=== PATIENT | female | born 1985 | race Caucasian/White ===

== ENCOUNTER → 2021-07-22 10:20 | Outpatient (CLI) | payer OTHER, SELFPAY ==
[2021-07-22 11:03] LABS: Add Manual Diff / Slide Review NO; Basophils Absolute Auto 0 /uL (0-100); Basophils Percent Auto 0.6 % (0-2); Eosinophils Absolute Auto 100 /uL (0-450); Eosinophils Percent Auto 1.1 % (2-4); Hematocrit 39.5 % (36-46); Hemoglobin 13.3 g/dL (12.0-16.0); Lymphocytes Absolute Auto 1800 /uL (1100-4500); Lymphocytes Percent Auto 31.8 % (25-40); Mean Corpuscular HGB Conc 33.6 % (30-36); Mean Corpuscular Hemoglobin 29.2 PG (26-34); Monocytes Absolute Auto 400 /uL (0-900); Monocytes Percent Auto 6.3 % (3-14); Neutrophils Absolute Auto 3500 /uL (1500-7000); Neutrophils Percent Auto 60.2 % (50-75); Platelet Count 240 X10^3/uL (150-400); Red Blood Cell Count 4.54 X10^6/uL (4.0-5.2); Red Cell Distribution Width 13.1 % (11.6-14.8); White Blood Cell Count 5.8 X10^3/uL (4.5-11.0)
[2021-07-22 11:38] LABS: Alanine Aminotransferase 23 IU/L (<35); Albumin 4.6 g/dL (3.5-5.0); Albumin Globulin Ratio 1.5 (1.0-2.8); Alkaline Phosphatase 28 U/L (38-126); Aspartate Aminotransferase 27 IU/L (14-36); BUN Creatinine Ratio 14.9 (6-22); Bilirubin Total 0.4 mg/dL (0.2-1.3); Blood Urea Nitrogen 10 mg/dL (7-17); Calcium 8.8 mg/dL (8.4-10.2); Carbon Dioxide 27 mmol/L (22-32); Chloride 107 mmol/L (98-107); Cholesterol 137 mg/dL (140-199); Estimated Glomerular Filt Rate > 60 mL/min (>60); Globulin 3.1 g/dL (1.7-4.1); Glucose 85 mg/dL (70-100); HDL Cholesterol 42 mg/dL (40-60); HEMOLYSIS < 15 (0-50); LDL Cholesterol Calculated 72 mg/dL (<100); Sodium 139 mmol/L (137-145); Total Protein 7.7 g/dL (6.3-8.2); Triglycerides 114 mg/dL (35-150)
[2021-07-22 12:40] LABS: TSH w/ Reflex to FT4 0.48 uIU/mL (0.47-4.68)
== END ==
PROVIDERS: PCP Family Medicine; Referring Provider Family Medicine; Visit Provider Family Medicine
DX: Z13.220 Encounter for screening for lipoid disorders (principal); Z13.228 Encounter for screening for other metabolic disorders; Z13.29 Encounter for screening for other suspected endocrine disorder; Z76.89 Persons encountering health services in other specified circumstances
CPT/HCPCS: 36415; 80053; 80061; 84443; 85025

== ENCOUNTER → 2021-09-27 09:55 | Outpatient (CLI) | payer OTHER, SELFPAY ==
[2021-09-27 11:21] LABS: Appearance Urine UA CLEAR; Bilirubin Urine UA NEGATIVE (NEGATIVE); Color Urine UA YELLOW; Glucose Urine UA NEGATIVE (Negative); Ketones Urine UA NEGATIVE (NEGATIVE); Leukocyte Esterase Urine UA NEGATIVE (NEGATIVE); Nitrite Urine UA NEGATIVE (Negative); Occult Blood Urine UA TRACE-LYSED (Negative); Protein Urine UA NEGATIVE (Negative); Specific Gravity Urine UA 1.015 (1.000-1.035); Urobilinogen Urine UA 0.2 E.U./dL (0.2)
[2021-09-27 12:26] LABS: Bacteria Urine Few (2-10); Culture Indicated Urine Cult Not Indicated; RBC Urine None Seen (0-5/HPF); Squamous Epithelial Cell Urine 1-5 /HPF (0-5/HPF); WBC Urine 0-1/HPF (0-5/HPF)
== END ==
PROVIDERS: PCP Pediatrics; Referring Provider Nurse Practitioner; Visit Provider Nurse Practitioner
DX: R32 Unspecified urinary incontinence (principal)
CPT/HCPCS: 81001

== ENCOUNTER → 2021-10-05 11:53 | Outpatient (CLI) | payer OTHER, SELFPAY ==
--- NOTE | 2021-10-05 11:54 | DI.US.S_ITS ---
LIMITED ULTRASOUND OF RIGHT BREAST: 10/05/2021 CLINICAL: Patient returns today to evaluate an asymmetry in the right breast. Comparison is made to exams dated: 10/05/2021 mammogram - [facility], 04/29/2018 mammogram, 04/29/2018 ultrasound, and 04/24/2018 mammogram - Outside facility. Color flow and real-time ultrasound of the right breast 1-2 o'clock region were performed. Benign sternalis muscle on the right accounting for mammographic asymmetry. No mass or shadowing. IMPRESSION: BENIGN Benign sternalis muscle accounting for mammographic asymmetry in the medial right breast. No suspicious finding. Return to screening annually. This exam was interpreted at Station ID: [id number]. Electronically Signed By: Elvis Kumar M.D. jr/:10/05/2021 14:59:01 Entry: - 10/06/2021 14:38:18 letter sent: Normal Exam Ultrasound BI-RADS: 2 Benign
--- NOTE | 2021-10-05 11:54 | DI.MG.S_ITS ---
BILATERAL DIGITAL DIAGNOSTIC MAMMOGRAM 3D/2D: 10/05/2021 CLINICAL: Short term follow up of the right breast, due for bilateral imaging. Comparison is made to exams dated: 04/24/2018 mammogram, 04/29/2018 mammogram, and 04/29/2018 ultrasound - Outside facility. The tissue of both breasts is extremely dense, which lowers the sensitivity of mammography. There is a benign sternalis muscle structure in the right breast posterior depth medial region seen on the craniocaudal view only. This is not significantly changed. No other significant masses, calcifications, or other findings are seen in either breast. IMPRESSION: INCOMPLETE: NEEDS ADDITIONAL IMAGING EVALUATION There is no mammographic evidence of malignancy. Asymmetry in the medial right breast is consistent with sternalis muscle and is unchanged. An ultrasound of the area will be performed as requested and as previously recommended. This exam was interpreted at Station ID: [id number]. NOTE: For mammograms, a report in lay terms will be sent to the patient. Approximately 15% of breast malignancies will not be visualized mammographically. In the management of a palpable breast mass, a negative mammogram must not discourage biopsy of a clinically suspicious lesion. Electronically Signed By: Elvis Kumar M.D. jr/:10/06/2021 09:33:12 ACR BI-RADS Category 0: Incomplete [id number]
== END ==
PROVIDERS: PCP Pediatrics; Referring Provider Nurse Practitioner; Visit Provider Nurse Practitioner
DX: R92.8 Other abnormal and inconclusive findings on diagnostic imaging of breast; N64.89 Other specified disorders of breast
CPT/HCPCS: 76642; 77066; G0279

== ENCOUNTER 2022-03-01 09:45 | Outpatient (RCR) | payer OTHER, SELFPAY ==
--- NOTE | 2021-12-13 17:23 | PT.OIE ---
Current Diagnoses Unspecified urinary incontinence (12/13/21) Nocturia (12/13/21) Urgency of urination (12/13/21) Past Medical History (Last Updated 09/27/21 @ 09:50 by BRADY Osuna) Abnormal Pap smear of cervix (~2006) Anxiety (~1999) Depression (~2004) Eczema (~2017) Frequent UTI (~2004) Incontinence Past Surgical History (Last Reviewed 09/27/21 @ 09:33 by BRADY Osuna) Anesthesia [place] teeth removed (~2005) Visit Care Team Role Provider Type Yariel Esparza MD Family Provider Physician Primary Care Provider Specialty: Internal Medicine Pediatrics Address: [address] [place] [address], [id number] Phone: Fax: Email: [email or web address] Attending Provider Advanced Talent Associate Referring Provider Specialty: Family Practice Address: [address] [place] [address], [facility] Email: [email or web address] Physical Therapy Initial Evaluation PT-OP-A Visit Information Start: 12/13/21 09:02 Freq: Status: Active Protocol: Document 12/13/21 09:05 [facility] (Rec: 12/13/21 09:26 [facility] [id number]) Out-Patient Physical Therapy Visit Information Visit Information Visit Type Initial Evaluation Visit Start Time 09:05 Visit Stop Time 10:30 Total Visit Minutes 40 Visit Number 1 Evaluation Information Evaluation Date 12/13/21 PT-OP-B Current Condition Start: 12/13/21 09:02 Freq: Status: Active Protocol: Document 12/13/21 09:05 [facility] (Rec: 12/13/21 09:26 [facility] [id number]) Current Condition History of Current Condition Onset Date January 2019 following the of her daughter Current Complaints urinary urgency, frequency, urge incontinence History of Current Condition January 2019 normal vaginal delivery, pt used to be able to go long durations without having to use the bathroom, now she feels like she has to void frequently, nocturia if her baby wakes her up. If she doesn't go during the day when she has to void. Doesn't usually leak with cough laugh sneeze. On the first day of her period she will note numbness. Pt notes she doesn' t always have a daily bowel movement. There are days that it doesn't happen. PT-OP-C Subjective Start: 12/13/21 09:02 Freq: Status: Active Protocol: Document 12/13/21 09:00 [facility] (Rec: 12/20/21 17:12 [facility] [id number]) Patient Questionnaires Pelvic Pain and Urgency/Frequency Patient Symptom Scale Pelvic Pain Score 6 PT-OP-F Manual Assessment Start: 12/13/21 09:02 Freq: Status: Active Protocol: Document 12/13/21 09:00 [facility] (Rec: 12/14/21 09:43 [facility] [id number]) Manual Assessments Soft Tissue Assessment Soft Tissue Mobility Assessment left descending colon Myofascial restrictions felt along with a full colon, pt notes she is not always having a daily bowel movement right sided muscle tightness and guarding with internal assessment of levator ani musculature. Mere has difficulty relaxing her pelvic floor following a contraction PT-OP-I Pelvic Floor Start: 12/13/21 09:02 Freq: Status: Active Protocol: Document 12/13/21 09:00 [facility] (Rec: 12/14/21 09:42 [facility] [id number]) Pelvic Floor Assessment Urine Pelvic Floor Surgery No Urinary Symptoms Urge Sensation,Incomplete Emptying Other Urinary Symptoms bladder leakage 3 times per week, pelvic pressure with standing when menstruating Leakage Size Medium Leakage Cause Urge Voiding Frequency 6 times Nocturia 1 Pelvic Clock Pelvic Clock 12-3 Atrophy Pelvic Clock 3-6 Atrophy Pelvic Clock 6-9 Guarding Pelvic Clock 9-12 Atrophy Contraction Ability Voluntary Contraction Weak Voluntary Relaxation Weak Manual Muscle Testing Left 3 Manual Muscle Testing Right 2 Manual Muscle Testing Anterior 2 Manual Muscle Testing Posterior 2 Muscle Endurance (Seconds) 5 Comments Pelvic Floor Comments pt is guarded on the right lateral wall of the levator ani, she has difficulty relaxing following a pelvic floor contraction, stool is felt in the rectum with internal exam PT-OP-Q Treatments Start: 12/13/21 09:02 Freq: Status: Active Protocol: Document 12/13/21 09:05 [facility] (Rec: 12/13/21 09:26 [facility] [id number]) Self-Care/Home Management Treatment Education Patient Education Home Exercise Program Other Education urge defernce technique, bladder diary given to patient , education on pelvic floor anatomy, bladder irrititants PT-OP-T Assessment and Plan Start: 12/13/21 09:02 Freq: Status: Active Protocol: Document 12/13/21 09:05 [facility] (Rec: 12/20/21 17:12 [facility] [id number]) Physical Therapy Assessment Rehab Potential Rehabilitation Potential Excellent Evaluation Complexity Number of Personal Factors/Comorbidities 0 Number of Body Systems Impaired 1-2 Clinical Presentation at Evaluation Stable Impairments Impairments Activity Tolerance,Soft Tissue Mobility,Strength,Tone Other Impairments urinary leakage with strong urge to void Assessment Summary Assessment Mere is a 36 year old female referred to PT with chief complaints of urinary urgency and urge incontinence symptoms . She gave to her daughter with a vaginal delivery in 2019 and since that time she feels that she has to void frequently. She also reports c/o nocturia. Mere notes she does not always have a daily bowel movement. She was educated today on importance of daily bowel movements to help reduce any pressure onto her bladder that may be contributing to her urgency. She was given a bladder diary and educated on bladder irritants that may be contributing her her urgency and frequency. With pelvic floor evaluation Mere tests weak in the anterior pelvic floor. She is a 2/5 MMT for anterior and posterior strickland and 3/5 for the lateral strickland. She is guarded on the right lateral wall of her pelvic floor and she has difficulty relaxing this area of her pelvic floor. Treatment will focus on fully relaxing the pelvic floor to fully empty her bladder, pelvic floor endurance training, bladder retraining and urge deference technique. Mere is a good candidate for Pelvic floor PT. Physical Therapy Plan Frequency and Duration Frequency of Treatment 1x/Week Duration of treatment (weeks) 12 Plan of Care Start Date 12/13/21 Plan of Care End Date 03/15/21 Therapeutic Interventions Therapeutic Interventions Home Exercise Program,Manual Therapy,Neuromuscular Re- education,Patient/Caregiver Education,Self-Care/Home Management,Soft Tissue Mobilization,Therapeutic Exercises Modalities Biofeedback,Electric Stimulation Next Visit Focus/Plan Next Note Type Treatment Note Next Visit Plan bladder retraining and urge deference technique, ILU massage for the colon, pelvic floor endurance training with EMG biofeedback
--- NOTE | 2021-12-13 17:29 | PT.OPPOC ---
Physical, Occupational & Speech Therapy At [facility] Current Diagnoses Unspecified urinary incontinence (12/13/21) Nocturia (12/13/21) Urgency of urination (12/13/21) Visit Care Team Role Provider Type Yariel Esparza MD Family Provider Physician Primary Care Provider Specialty: Internal Medicine Pediatrics Address: [address] [place] [address], [address] Phone: Fax: Email: [email or web address] Attending Provider Advanced General Operator Referring Provider Specialty: Family Practice Address: [address] [place] [address], [address] Email: [email or web address] Plan Of Care PT-OP-T Assessment and Plan Start: 12/13/21 09:02 Freq: Status: Active Protocol: Document 12/13/21 09:05 [facility] (Rec: 12/20/21 17:12 [facility] [id number]) Physical Therapy Assessment Rehab Potential Rehabilitation Potential Excellent Evaluation Complexity Number of Personal Factors/Comorbidities 0 Number of Body Systems Impaired 1-2 Clinical Presentation at Evaluation Stable Impairments Impairments Activity Tolerance,Soft Tissue Mobility,Strength,Tone Other Impairments urinary leakage with strong urge to void Goals 3 Impairment pelvic floor weakness and decreased pelvic floor endurance Short Term Goal (STG) Mere is able to sustain a pelvic floor contraction in supine x 10 seconds Custodial Goal (LTG) Mere is able to show a improvement with pelvic floor muscle strength by 1 muscle grade or better and is able to sustain a pelvic floor contraction x 10 seconds in standing LTG Duration 12 weeks 2 Impairment urinary incontinence with strong urge to void wetting through her outerware 3 times per week Veterinary Livestock Inspector Goal (LTG) Mere reports a overall reduction in urinary incontinence from wetting through her outerware 3 xms per week to no leakage LTG Duration 12 weeks 1 Impairment urinary urgency and frequency with nocturia Short Term Goal (STG) Mere is educated on bladder retraining and urge deference technique STG Duration 3 weeks Custodial Goal (LTG) Mere is able to extend her voiding intervals to every 2-3 hours during the day and 0-1 times at night LTG Duration 12 weeks Assessment Summary Assessment Mere is a 36 year old female referred to PT with chief complaints of urinary urgency and urge incontinence symptoms . She gave to her daughter with a vaginal delivery in 2019 and since that time she feels that she has to void frequently. She also reports c/o nocturia. Mere notes she does not always have a daily bowel movement. She was educated today on importance of daily bowel movements to help reduce any pressure onto her bladder that may be contributing to her urgency. She was given a bladder diary and educated on bladder irritants that may be contributing her her urgency and frequency. With pelvic floor evaluation Mere tests weak in the anterior pelvic floor. She is a 2/5 MMT for anterior and posterior strickland and 3/5 for the lateral strickland. She is guarded on the right lateral wall of her pelvic floor and she has difficulty relaxing this area of her pelvic floor. Treatment will focus on fully relaxing the pelvic floor to fully empty her bladder, pelvic floor endurance training, bladder retraining and urge deference technique. Mere is a good candidate for Pelvic floor PT. Physical Therapy Plan Frequency and Duration Frequency of Treatment 1x/Week Duration of treatment (weeks) 12 Plan of Care Start Date 12/13/21 Plan of Care End Date 03/15/21 Therapeutic Interventions Therapeutic Interventions Home Exercise Program,Manual Therapy,Neuromuscular Re- education,Patient/Caregiver Education,Self-Care/Home Management,Soft Tissue Mobilization,Therapeutic Exercises Modalities Biofeedback,Electric Stimulation Next Visit Focus/Plan Next Note Type Treatment Note Next Visit Plan bladder retraining and urge deference technique, ILU massage for the colon, pelvic floor endurance training with EMG biofeedback Plan of Care Dates Plan of Care Start Date 12/13/21 Plan of Care End Date 03/15/21 Electronically Signed by: Tiera Nowak, PT 12/20/21 9114 If you are in agreement with this Plan of Care, please return a signed and dated copy. I have reviewed this Plan of Care and certify that the skilled therapy services above are required to meet the patient?s needs. Physician Signature Date Printed Name and Credentials Clinical Instructor Signature Printed Name and Credentials
--- NOTE | 2021-12-13 17:30 | PT.OIE ---
Current Diagnoses Unspecified urinary incontinence (12/13/21) Nocturia (12/13/21) Urgency of urination (12/13/21) Past Medical History (Last Updated 09/27/21 @ 09:50 by BRADY Osuna) Abnormal Pap smear of cervix (~2006) Anxiety (~1999) Depression (~2004) Eczema (~2017) Frequent UTI (~2004) Incontinence Past Surgical History (Last Reviewed 09/27/21 @ 09:33 by BRADY Osuna) Anesthesia [place] teeth removed (~2005) Visit Care Team Role Provider Type Yariel Esparza MD Family Provider Physician Primary Care Provider Specialty: Internal Medicine Pediatrics Address: [address] [place] [address], [id number] Phone: Fax: Email: [email or web address] Osuna Attending Provider Advanced Detective And Intelligence Analyst Referring Provider Specialty: Family Practice Address: [address] [place] [address], [facility] Email: [email or web address] Physical Therapy Initial Evaluation PT-OP-A Visit Information Start: 12/13/21 09:02 Freq: Status: Active Protocol: Document 12/13/21 09:05 [facility] (Rec: 12/13/21 09:26 [facility] [id number]) Out-Patient Physical Therapy Visit Information Visit Information Visit Type Initial Evaluation Visit Start Time 09:05 Visit Stop Time 10:30 Total Visit Minutes 40 Visit Number 1 Evaluation Information Evaluation Date 12/13/21 PT-OP-B Current Condition Start: 12/13/21 09:02 Freq: Status: Active Protocol: Document 12/13/21 09:05 [facility] (Rec: 12/13/21 09:26 [facility] [id number]) Current Condition History of Current Condition Onset Date January 2019 following the of her daughter Current Complaints urinary urgency, frequency, urge incontinence History of Current Condition January 2019 normal vaginal delivery, pt used to be able to go long durations without having to use the bathroom, now she feels like she has to void frequently, nocturia if her baby wakes her up. If she doesn't go during the day when she has to void. Doesn't usually leak with cough laugh sneeze. On the first day of her period she will note numbness. Pt notes she doesn' t always have a daily bowel movement. There are days that it doesn't happen. PT-OP-C Subjective Start: 12/13/21 09:02 Freq: Status: Active Protocol: Document 12/13/21 09:00 [facility] (Rec: 12/20/21 17:12 [facility] [id number]) Patient Questionnaires Pelvic Pain and Urgency/Frequency Patient Symptom Scale Pelvic Pain Score 6 PT-OP-F Manual Assessment Start: 12/13/21 09:02 Freq: Status: Active Protocol: Document 12/13/21 09:00 [facility] (Rec: 12/14/21 09:43 [facility] [id number]) Manual Assessments Soft Tissue Assessment Soft Tissue Mobility Assessment left descending colon Myofascial restrictions felt along with a full colon, pt notes she is not always having a daily bowel movement right sided muscle tightness and guarding with internal assessment of levator ani musculature. Mere has difficulty relaxing her pelvic floor following a contraction PT-OP-I Pelvic Floor Start: 12/13/21 09:02 Freq: Status: Active Protocol: Document 12/13/21 09:00 [facility] (Rec: 12/14/21 09:42 [facility] [id number]) Pelvic Floor Assessment Urine Pelvic Floor Surgery No Urinary Symptoms Urge Sensation,Incomplete Emptying Other Urinary Symptoms bladder leakage 3 times per week, pelvic pressure with standing when menstruating Leakage Size Medium Leakage Cause Urge Voiding Frequency 6 times Nocturia 1 Pelvic Clock Pelvic Clock 12-3 Atrophy Pelvic Clock 3-6 Atrophy Pelvic Clock 6-9 Guarding Pelvic Clock 9-12 Atrophy Contraction Ability Voluntary Contraction Weak Voluntary Relaxation Weak Manual Muscle Testing Left 3 Manual Muscle Testing Right 2 Manual Muscle Testing Anterior 2 Manual Muscle Testing Posterior 2 Muscle Endurance (Seconds) 5 Comments Pelvic Floor Comments pt is guarded on the right lateral wall of the levator ani, she has difficulty relaxing following a pelvic floor contraction, stool is felt in the rectum with internal exam PT-OP-Q Treatments Start: 12/13/21 09:02 Freq: Status: Active Protocol: Document 12/13/21 09:05 [facility] (Rec: 12/13/21 09:26 [facility] [id number]) Self-Care/Home Management Treatment Education Patient Education Home Exercise Program Other Education urge defernce technique, bladder diary given to patient , education on pelvic floor anatomy, bladder irrititants PT-OP-T Assessment and Plan Start: 12/13/21 09:02 Freq: Status: Active Protocol: Document 12/13/21 09:05 [facility] (Rec: 12/20/21 17:12 [facility] [id number]) Physical Therapy Assessment Rehab Potential Rehabilitation Potential Excellent Evaluation Complexity Number of Personal Factors/Comorbidities 0 Number of Body Systems Impaired 1-2 Clinical Presentation at Evaluation Stable Impairments Impairments Activity Tolerance,Soft Tissue Mobility,Strength,Tone Other Impairments urinary leakage with strong urge to void Goals 3 Impairment pelvic floor weakness and decreased pelvic floor endurance Short Term Goal (STG) Mere is able to sustain a pelvic floor contraction in supine x 10 seconds Correction Goal (LTG) Mere is able to show a improvement with pelvic floor muscle strength by 1 muscle grade or better and is able to sustain a pelvic floor contraction x 10 seconds in standing LTG Duration 12 weeks 2 Impairment urinary incontinence with strong urge to void wetting through her outerware 3 times per week Correction Goal (LTG) Mere reports a overall reduction in urinary incontinence from wetting through her outerware 3 xms per week to no leakage LTG Duration 12 weeks 1 Impairment urinary urgency and frequency with nocturia Short Term Goal (STG) Mere is educated on bladder retraining and urge deference technique STG Duration 3 weeks Correction Goal (LTG) Mere is able to extend her voiding intervals to every 2-3 hours during the day and 0-1 times at night LTG Duration 12 weeks Assessment Summary Assessment Mere is a 36 year old female referred to PT with chief complaints of urinary urgency and urge incontinence symptoms . She gave to her daughter with a vaginal delivery in 2019 and since that time she feels that she has to void frequently. She also reports c/o nocturia. Mere notes she does not always have a daily bowel movement. She was educated today on importance of daily bowel movements to help reduce any pressure onto her bladder that may be contributing to her urgency. She was given a bladder diary and educated on bladder irritants that may be contributing her her urgency and frequency. With pelvic floor evaluation Mere tests weak in the anterior pelvic floor. She is a 2/5 MMT for anterior and posterior strickland and 3/5 for the lateral strickland. She is guarded on the right lateral wall of her pelvic floor and she has difficulty relaxing this area of her pelvic floor. Treatment will focus on fully relaxing the pelvic floor to fully empty her bladder, pelvic floor endurance training, bladder retraining and urge deference technique. Mere is a good candidate for Pelvic floor PT. Physical Therapy Plan Frequency and Duration Frequency of Treatment 1x/Week Duration of treatment (weeks) 12 Plan of Care Start Date 12/13/21 Plan of Care End Date 03/15/21 Therapeutic Interventions Therapeutic Interventions Home Exercise Program,Manual Therapy,Neuromuscular Re- education,Patient/Caregiver Education,Self-Care/Home Management,Soft Tissue Mobilization,Therapeutic Exercises Modalities Biofeedback,Electric Stimulation Next Visit Focus/Plan Next Note Type Treatment Note Next Visit Plan bladder retraining and urge deference technique, ILU massage for the colon, pelvic floor endurance training with EMG biofeedback
--- NOTE | 2022-01-12 17:36 | PT.OTN ---
Current Diagnoses Unspecified urinary incontinence (01/12/22) Nocturia (01/12/22) Urgency of urination (01/12/22) Physical Therapy Treatment Note PT-OP-A Visit Information Start: 12/13/21 09:02 Freq: Status: Active Protocol: Document 01/12/22 09:48 [facility] (Rec: 01/12/22 10:11 [facility] [id number]) Out-Patient Physical Therapy Visit Information Visit Information Visit Type Treatment Note Visit Start Time 09:45 Visit Stop Time 10:30 Total Visit Minutes 45 Visit Number 2 PT-OP-B Current Condition Start: 12/13/21 09:02 Freq: Status: Active Protocol: Document 12/13/21 09:05 [facility] (Rec: 12/13/21 09:26 [facility] [id number]) Current Condition History of Current Condition Onset Date January 2019 following the of her daughter Current Complaints urinary urgency, frequency, urge incontinence History of Current Condition January 2019 normal vaginal delivery, pt used to be able to go long durations without having to use the bathroom, now she feels like she has to void frequently, nocturia if her baby wakes her up. If she doesn't go during the day when she has to void. Doesn't usually leak with cough laugh sneeze. On the first day of her period she will note numbness. Pt notes she doesn' t always have a daily bowel movement. There are days that it doesn't happen. PT-OP-C Subjective Start: 12/13/21 09:02 Freq: Status: Active Protocol: Document 01/12/22 09:48 [facility] (Rec: 01/12/22 10:11 [facility] [id number]) OP-PT Subjective Patient Comments Patient Comments pt notes she hasn't been having as many accidents, usually the leakage happens with a strong urge to void and it can happen after she has been in the car and then pulls up at home. She has been trying the ILU massage as well PT-OP-F Manual Assessment Start: 12/13/21 09:02 Freq: Status: Active Protocol: Document 12/13/21 09:00 [facility] (Rec: 12/14/21 09:43 [facility] [id number]) Manual Assessments Soft Tissue Assessment Soft Tissue Mobility Assessment left descending colon Myofascial restrictions felt along with a full colon, pt notes she is not always having a daily bowel movement right sided muscle tightness and guarding with internal assessment of levator ani musculature. Mere has difficulty relaxing her pelvic floor following a contraction PT-OP-I Pelvic Floor Start: 12/13/21 09:02 Freq: Status: Active Protocol: Document 01/12/22 09:48 [facility] (Rec: 01/12/22 10:12 [facility] [id number]) Pelvic Floor Assessment Urine Pelvic Floor Surgery No Urinary Symptoms Urge Sensation,Incomplete Emptying Other Urinary Symptoms bladder leakage 3 times per week, pelvic pressure with standing when menstruating Leakage Size Medium Leakage Cause Urge Voiding Frequency 6 times Nocturia 1 Contraction Ability Voluntary Contraction Weak Voluntary Relaxation Weak Manual Muscle Testing Left 3 Manual Muscle Testing Right 2 Manual Muscle Testing Anterior 2 Manual Muscle Testing Posterior 2 Muscle Endurance (Seconds) 5 PT-OP-Q Treatments Start: 12/13/21 09:02 Freq: Status: Active Protocol: Document 01/12/22 09:48 [facility] (Rec: 01/12/22 10:28 [facility] [id number]) Therapeutic Exercises Supine Exercises quick pelvic floor contractions Comments pt to use with urge technique for home pelvic floor Reps/Minutes 10 second hold 10 sec relax Comments 13.6 23.8 Manual Therapy Treatment Soft Tissue Mobilization 1 Body Location ILU abdominal massage Mobilization Type Myofascial Release Intensity/Depth Superficial Comments pt educated in ILU massage for home Neuro Re-Education Treatment Other Activities EMG biofeedback Comments EMG biofeedback was used today for relaxed awareness of the pelvic floor and endurance training of the pelvic floor Self-Care/Home Management Treatment Education Patient Education Home Exercise Program Other Education ILU massage, urge deference technique and bladder retraining PT-OP-T Assessment and Plan Start: 12/13/21 09:02 Freq: Status: Active Protocol: Document 01/12/22 09:48 [facility] (Rec: 01/12/22 10:11 [facility] [id number]) Physical Therapy Assessment Goals 3 Impairment pelvic floor weakness and decreased pelvic floor endurance Short Term Goal (STG) Mere is able to sustain a pelvic floor contraction in supine x 10 seconds Custodial Goal (LTG) Mere is able to show a improvement with pelvic floor muscle strength by 1 muscle grade or better and is able to sustain a pelvic floor contraction x 10 seconds in standing LTG Duration 12 weeks 2 Impairment urinary incontinence with strong urge to void wetting through her outerware 3 times per week Gearcase Assembler Goal (LTG) Mere reports a overall reduction in urinary incontinence from wetting through her outerware 3 xms per week to no leakage LTG Duration 12 weeks 1 Impairment urinary urgency and frequency with nocturia Short Term Goal (STG) Mere is educated on bladder retraining and urge deference technique STG Duration 3 weeks Custodial Goal (LTG) Mere is able to extend her voiding intervals to every 2-3 hours during the day and 0-1 times at night LTG Duration 12 weeks Assessment Summary Assessment ILU massage and urge deference technique both reviewed today and EMG biofeedback initiated for pelvic floor endurance training. Mere tolerated this well and her endurance showed improvement today Physical Therapy Plan Frequency and Duration Frequency of Treatment 1x/Week Duration of treatment (weeks) 12 Plan of Care Start Date 12/13/21 Plan of Care End Date 03/15/21
--- NOTE | 2022-01-25 10:40 | PT.OTN ---
Current Diagnoses Unspecified urinary incontinence (01/25/22) Nocturia (01/25/22) Urgency of urination (01/25/22) Physical Therapy Treatment Note PT-OP-A Visit Information Start: 12/13/21 09:02 Freq: Status: Active Protocol: Document 01/25/22 09:44 [facility] (Rec: 01/25/22 10:15 [facility] [id number]) Out-Patient Physical Therapy Visit Information Visit Information Visit Type Treatment Note Visit Start Time 09:45 Visit Stop Time 10:30 Total Visit Minutes 45 Visit Number 3 PT-OP-B Current Condition Start: 12/13/21 09:02 Freq: Status: Active Protocol: Document 12/13/21 09:05 [facility] (Rec: 12/13/21 09:26 [facility] [id number]) Current Condition History of Current Condition Onset Date January 2019 following the of her daughter Current Complaints urinary urgency, frequency, urge incontinence History of Current Condition January 2019 normal vaginal delivery, pt used to be able to go long durations without having to use the bathroom, now she feels like she has to void frequently, nocturia if her baby wakes her up. If she doesn't go during the day when she has to void. Doesn't usually leak with cough laugh sneeze. On the first day of her period she will note numbness. Pt notes she doesn' t always have a daily bowel movement. There are days that it doesn't happen. PT-OP-C Subjective Start: 12/13/21 09:02 Freq: Status: Active Protocol: Document 01/25/22 09:44 [facility] (Rec: 01/25/22 10:15 [facility] [id number]) OP-PT Subjective Patient Comments Patient Comments pt notes 2.5 weeks ago she got RSV so she has had a cough and has been close to home. She didn't have any leakage with coughing but did once when she sneezed. She hasn't had any complaints of urrgency recently but notes she has been at home due to being sick PT-OP-F Manual Assessment Start: 12/13/21 09:02 Freq: Status: Active Protocol: Document 12/13/21 09:00 [facility] (Rec: 12/14/21 09:43 [facility] [id number]) Manual Assessments Soft Tissue Assessment Soft Tissue Mobility Assessment left descending colon Myofascial restrictions felt along with a full colon, pt notes she is not always having a daily bowel movement right sided muscle tightness and guarding with internal assessment of levator ani musculature. Mere has difficulty relaxing her pelvic floor following a contraction PT-OP-I Pelvic Floor Start: 12/13/21 09:02 Freq: Status: Active Protocol: Document 01/12/22 09:48 [facility] (Rec: 01/12/22 10:12 [facility] [id number]) Pelvic Floor Assessment Urine Pelvic Floor Surgery No Urinary Symptoms Urge Sensation,Incomplete Emptying Other Urinary Symptoms bladder leakage 3 times per week, pelvic pressure with standing when menstruating Leakage Size Medium Leakage Cause Urge Voiding Frequency 6 times Nocturia 1 Contraction Ability Voluntary Contraction Weak Voluntary Relaxation Weak Manual Muscle Testing Left 3 Manual Muscle Testing Right 2 Manual Muscle Testing Anterior 2 Manual Muscle Testing Posterior 2 Muscle Endurance (Seconds) 5 PT-OP-Q Treatments Start: 12/13/21 09:02 Freq: Status: Active Protocol: Document 01/25/22 09:44 [facility] (Rec: 01/25/22 10:15 [facility] [id number]) Therapeutic Exercises Supine Exercises supine roll outs Reps/Minutes 2 x 10 with level 2 theraband Comments pt had a history of left hip bursitis with her ball squeeze with pelvic floor contraction Reps/Minutes x 10 reps quick pelvic floor contractions Comments 16 uv max for quick contractions pelvic floor Reps/Minutes 10 sec hold 10 sec relax Comments 10.8 uv average 18.2 max Neuro Re-Education Treatment Other Activities EMG biofeedback Comments EMG biofeedback was used today for relaxed awareness of the pelvic floor and endurance training. Pt did all of her pelvic floor exercises with EMG biofeedback. She was able to get her resting tone down to .5 today Self-Care/Home Management Treatment Education Patient Education Home Exercise Program Other Education discussion on increasing time between voids, pt to work on urge technique to extend by 10 min. Pt has been voiding every 2 hours during the day PT-OP-T Assessment and Plan Start: 12/13/21 09:02 Freq: Status: Active Protocol: Document 01/25/22 09:44 [facility] (Rec: 01/25/22 10:15 [facility] [id number]) Physical Therapy Assessment Goals 3 Impairment pelvic floor weakness and decreased pelvic floor endurance Short Term Goal (STG) Mere is able to sustain a pelvic floor contraction in supine x 10 seconds Adoption Specialist Goal (LTG) Mere is able to show a improvement with pelvic floor muscle strength by 1 muscle grade or better and is able to sustain a pelvic floor contraction x 10 seconds in standing LTG Duration 12 weeks 2 Impairment urinary incontinence with strong urge to void wetting through her outerware 3 times per week Adoption Specialist Goal (LTG) Mere reports a overall reduction in urinary incontinence from wetting through her outerware 3 xms per week to no leakage LTG Duration 12 weeks 1 Impairment urinary urgency and frequency with nocturia Short Term Goal (STG) Mere is educated on bladder retraining and urge deference technique STG Duration 3 weeks Adoption Specialist Goal (LTG) Mere is able to extend her voiding intervals to every 2-3 hours during the day and 0-1 times at night LTG Duration 12 weeks Assessment Summary Assessment Mere has reduced c/o of urgency. She has been voiding every 2 hours at home so we discussed trying to delay the need to void by 10 min at home and using the urge deference technique to do that. I added in ball squeeze and hip roll outs today and Mere tolerated that well. She does have a history of left hip bursitis with her Physical Therapy Plan Frequency and Duration Frequency of Treatment 1x/Week Duration of treatment (weeks) 12 Plan of Care Start Date 12/13/21 Plan of Care End Date 03/15/21 Therapeutic Interventions Therapeutic Interventions Home Exercise Program,Manual Therapy,Neuromuscular Re- education,Patient/Caregiver Education,Self-Care/Home Management,Soft Tissue Mobilization,Therapeutic Exercises Modalities Biofeedback,Electric Stimulation Next Visit Focus/Plan Next Note Type Treatment Note Next Visit Plan review all established exercises, review urge technique and how pt did extending the time between voids
--- NOTE | 2022-02-01 12:29 | PT.OTN ---
Current Diagnoses Unspecified urinary incontinence (02/01/22) Nocturia (02/01/22) Urgency of urination (02/01/22) Physical Therapy Treatment Note PT-OP-A Visit Information Start: 12/13/21 09:02 Freq: Status: Active Protocol: Document 02/01/22 09:45 [facility] (Rec: 02/01/22 09:52 [facility] [id number]) Out-Patient Physical Therapy Visit Information Visit Information Visit Type Treatment Note Visit Start Time 09:45 Visit Stop Time 10:30 Total Visit Minutes 45 Visit Number 4 PT-OP-B Current Condition Start: 12/13/21 09:02 Freq: Status: Active Protocol: Document 12/13/21 09:05 [facility] (Rec: 12/13/21 09:26 [facility] [id number]) Current Condition History of Current Condition Onset Date January 2019 following the of her daughter Current Complaints urinary urgency, frequency, urge incontinence History of Current Condition January 2019 normal vaginal delivery, pt used to be able to go long durations without having to use the bathroom, now she feels like she has to void frequently, nocturia if her baby wakes her up. If she doesn't go during the day when she has to void. Doesn't usually leak with cough laugh sneeze. On the first day of her period she will note numbness. Pt notes she doesn' t always have a daily bowel movement. There are days that it doesn't happen. PT-OP-C Subjective Start: 12/13/21 09:02 Freq: Status: Active Protocol: Document 02/01/22 09:45 [facility] (Rec: 02/01/22 09:52 [facility] [id number]) OP-PT Subjective Patient Comments Patient Comments pt notes she has been able to sleep all night because her daughter has been sleeping through the night. She has been making it to the bathroom and not experiencing the urge PT-OP-F Manual Assessment Start: 12/13/21 09:02 Freq: Status: Active Protocol: Document 12/13/21 09:00 [facility] (Rec: 12/14/21 09:43 [facility] [id number]) Manual Assessments Soft Tissue Assessment Soft Tissue Mobility Assessment left descending colon Myofascial restrictions felt along with a full colon, pt notes she is not always having a daily bowel movement right sided muscle tightness and guarding with internal assessment of levator ani musculature. Mere has difficulty relaxing her pelvic floor following a contraction PT-OP-I Pelvic Floor Start: 12/13/21 09:02 Freq: Status: Active Protocol: Document 01/12/22 09:48 [facility] (Rec: 01/12/22 10:12 [facility] [id number]) Pelvic Floor Assessment Urine Pelvic Floor Surgery No Urinary Symptoms Urge Sensation,Incomplete Emptying Other Urinary Symptoms bladder leakage 3 times per week, pelvic pressure with standing when menstruating Leakage Size Medium Leakage Cause Urge Voiding Frequency 6 times Nocturia 1 Contraction Ability Voluntary Contraction Weak Voluntary Relaxation Weak Manual Muscle Testing Left 3 Manual Muscle Testing Right 2 Manual Muscle Testing Anterior 2 Manual Muscle Testing Posterior 2 Muscle Endurance (Seconds) 5 PT-OP-Q Treatments Start: 12/13/21 09:02 Freq: Status: Active Protocol: Document 02/01/22 09:45 [facility] (Rec: 02/01/22 10:25 [facility] [id number]) Therapeutic Exercises Supine Exercises templates for coordination and eccentric control on EMG biofeedback Reps/Minutes x 5 min supine roll outs Reps/Minutes 2 x 10 with level 2 theraband Comments no complaints of hip pain ball squeeze with pelvic floor contraction Reps/Minutes x 10 reps quick pelvic floor contractions Comments 23.7 uv max pelvic floor Reps/Minutes 17.4 uv avg and 30.5 max 10 reps x 10 seconds Comments resting tone below 1 uv initially Neuro Re-Education Treatment Other Activities EMG biofeedback Comments EMG biofeedback was used today for relaxed awareness of the pelvic floor and endurance training. Pt did all of her pelvic floor exercises with EMG biofeedback. Added in templates for coordination and eccentric control PT-OP-T Assessment and Plan Start: 12/13/21 09:02 Freq: Status: Active Protocol: Document 02/01/22 09:45 [facility] (Rec: 02/01/22 09:52 [facility] [id number]) Physical Therapy Assessment Goals 3 Impairment pelvic floor weakness and decreased pelvic floor endurance Short Term Goal (STG) Mere is able to sustain a pelvic floor contraction in supine x 10 seconds Milk Sampler Goal (LTG) Mere is able to show a improvement with pelvic floor muscle strength by 1 muscle grade or better and is able to sustain a pelvic floor contraction x 10 seconds in standing LTG Duration 12 weeks 2 Impairment urinary incontinence with strong urge to void wetting through her outerware 3 times per week Nursing Home Goal (LTG) Mere reports a overall reduction in urinary incontinence from wetting through her outerware 3 xms per week to no leakage LTG Duration 12 weeks 1 Impairment urinary urgency and frequency with nocturia Short Term Goal (STG) Mere is educated on bladder retraining and urge deference technique STG Duration 3 weeks Milk Sampler Goal (LTG) Mere is able to extend her voiding intervals to every 2-3 hours during the day and 0-1 times at night LTG Duration 12 weeks Assessment Summary Assessment Mere is making good progress with pelvic floor strength as well as improved resting tone of her pelvic floor. Her baseline tone on EMG is much improved and was at times fully in a rested position at 0 uv. Her symptoms have been decreasing as well. Physical Therapy Plan Frequency and Duration Frequency of Treatment 1x/Week Duration of treatment (weeks) 12 Plan of Care Start Date 12/13/21 Plan of Care End Date 03/15/21 Therapeutic Interventions Therapeutic Interventions Home Exercise Program,Manual Therapy,Neuromuscular Re- education,Patient/Caregiver Education,Self-Care/Home Management,Soft Tissue Mobilization,Therapeutic Exercises Modalities Biofeedback,Electric Stimulation Next Visit Focus/Plan Next Note Type Treatment Note Next Visit Plan review all established exercises, review urge technique and how pt did extending the time between voids
--- NOTE | 2022-02-08 11:34 | PT.OTN ---
Current Diagnoses Unspecified urinary incontinence (02/08/22) Nocturia (02/08/22) Urgency of urination (02/08/22) Physical Therapy Treatment Note PT-OP-A Visit Information Start: 12/13/21 09:02 Freq: Status: Active Protocol: Document 02/08/22 09:45 [facility] (Rec: 02/08/22 10:14 [facility] [id number]) Out-Patient Physical Therapy Visit Information Visit Information Visit Type Treatment Note Visit Start Time 09:45 Visit Stop Time 10:30 Total Visit Minutes 45 Visit Number 5 PT-OP-B Current Condition Start: 12/13/21 09:02 Freq: Status: Active Protocol: Document 12/13/21 09:05 [facility] (Rec: 12/13/21 09:26 [facility] [id number]) Current Condition History of Current Condition Onset Date January 2019 following the of her daughter Current Complaints urinary urgency, frequency, urge incontinence History of Current Condition January 2019 normal vaginal delivery, pt used to be able to go long durations without having to use the bathroom, now she feels like she has to void frequently, nocturia if her baby wakes her up. If she doesn't go during the day when she has to void. Doesn't usually leak with cough laugh sneeze. On the first day of her period she will note numbness. Pt notes she doesn' t always have a daily bowel movement. There are days that it doesn't happen. PT-OP-C Subjective Start: 12/13/21 09:02 Freq: Status: Active Protocol: Document 02/08/22 09:45 [facility] (Rec: 02/08/22 10:14 [facility] [id number]) OP-PT Subjective Patient Comments Patient Comments pt notes she can tell coffee is a trigger now. She wakes up at 5 am and has to go to the bathroom. No reports of leaks with her urgency this past week PT-OP-F Manual Assessment Start: 12/13/21 09:02 Freq: Status: Active Protocol: Document 12/13/21 09:00 [facility] (Rec: 12/14/21 09:43 [facility] [id number]) Manual Assessments Soft Tissue Assessment Soft Tissue Mobility Assessment left descending colon Myofascial restrictions felt along with a full colon, pt notes she is not always having a daily bowel movement right sided muscle tightness and guarding with internal assessment of levator ani musculature. Mere has difficulty relaxing her pelvic floor following a contraction PT-OP-I Pelvic Floor Start: 12/13/21 09:02 Freq: Status: Active Protocol: Document 02/08/22 09:45 [facility] (Rec: 02/08/22 10:15 [facility] [id number]) Pelvic Floor Assessment Urine Pelvic Floor Surgery No Urinary Symptoms Urge Sensation,Incomplete Emptying Other Urinary Symptoms bladder leakage 3 times per week, pelvic pressure with standing when menstruating Leakage Size Medium Leakage Cause Urge Voiding Frequency 6 times Nocturia 1 Pelvic Clock Pelvic Clock 12-3 Atrophy Pelvic Clock 3-6 Atrophy Pelvic Clock 6-9 Guarding Pelvic Clock 9-12 Atrophy Contraction Ability Voluntary Contraction Weak Voluntary Relaxation Weak Manual Muscle Testing Left 3 Manual Muscle Testing Right 2 Manual Muscle Testing Anterior 2 Manual Muscle Testing Posterior 2 Muscle Endurance (Seconds) 5 Comments Pelvic Floor Comments pt is guarded on the right lateral wall of the levator ani, she has difficulty relaxing following a pelvic floor contraction, stool is felt in the rectum with internal exam PT-OP-Q Treatments Start: 12/13/21 09:02 Freq: Status: Active Protocol: Document 02/08/22 09:45 [facility] (Rec: 02/08/22 10:14 [facility] [id number]) Therapeutic Exercises Supine Exercises templates for coordination and eccentric control on EMG biofeedback Reps/Minutes x 5 min supine roll outs Reps/Minutes 2 x 10 with level 2 theraband Comments no complaints of hip pain ball squeeze with pelvic floor contraction Reps/Minutes x 10 reps quick pelvic floor contractions Comments 31.5 uv max pelvic floor Reps/Minutes 18.2 uv and 31.0 Comments resting tone staying low max 31 Neuro Re-Education Treatment Other Activities NMES Comments NMES for the plevic floor, pt took intensity to level 12 EMG biofeedback Comments EMG biofeedback was used today for relaxed awareness of the pelvic floor and endurance training. Pt did all of her pelvic floor exercises with EMG biofeedback. Added in templates for coordination and eccentric control PT-OP-T Assessment and Plan Start: 12/13/21 09:02 Freq: Status: Active Protocol: Document 02/08/22 09:45 [facility] (Rec: 02/08/22 10:14 [facility] [id number]) Physical Therapy Assessment Assessment Summary Assessment Mere still notes the day before her period starts she feels heaviness in her pelvic floor and she takes IBU, she could feel the right side of her pelvic floor with the NMES and then towards the end of the stim she could feel a tiny bit on her left side. She would benefit from another couple visits of NMES Physical Therapy Plan Frequency and Duration Frequency of Treatment 1x/Week Duration of treatment (weeks) 12 Plan of Care Start Date 12/13/21 Plan of Care End Date 03/15/21 Therapeutic Interventions Therapeutic Interventions Home Exercise Program,Manual Therapy,Neuromuscular Re- education,Patient/Caregiver Education,Self-Care/Home Management,Soft Tissue Mobilization,Therapeutic Exercises Modalities Biofeedback,Electric Stimulation Next Visit Focus/Plan Next Note Type Treatment Note Next Visit Plan continue with NMES to promote full pelvic floor recruitment
--- NOTE | 2022-02-22 14:22 | PT.OTN ---
Current Diagnoses Unspecified urinary incontinence (02/22/22) Nocturia (02/22/22) Urgency of urination (02/22/22) Physical Therapy Treatment Note PT-OP-A Visit Information Start: 12/13/21 09:02 Freq: Status: Active Protocol: Document 02/22/22 09:44 [facility] (Rec: 02/22/22 09:58 [facility] [id number]) Out-Patient Physical Therapy Visit Information Visit Information Visit Type Treatment Note Visit Start Time 09:45 Visit Stop Time 10:30 Total Visit Minutes 45 Visit Number 6 PT-OP-B Current Condition Start: 12/13/21 09:02 Freq: Status: Active Protocol: Document 12/13/21 09:05 [facility] (Rec: 12/13/21 09:26 [facility] [id number]) Current Condition History of Current Condition Onset Date January 2019 following the of her daughter Current Complaints urinary urgency, frequency, urge incontinence History of Current Condition January 2019 normal vaginal delivery, pt used to be able to go long durations without having to use the bathroom, now she feels like she has to void frequently, nocturia if her baby wakes her up. If she doesn't go during the day when she has to void. Doesn't usually leak with cough laugh sneeze. On the first day of her period she will note numbness. Pt notes she doesn' t always have a daily bowel movement. There are days that it doesn't happen. PT-OP-C Subjective Start: 12/13/21 09:02 Freq: Status: Active Protocol: Document 02/22/22 09:44 [facility] (Rec: 02/22/22 09:58 [facility] [id number]) OP-PT Subjective Patient Comments Patient Comments pt feels that she is doing okay, one time she had to run to the bathroom but she made it. She feels that urgency is getting a little bit better overall Patient Reported Progress Improving PT-OP-F Manual Assessment Start: 12/13/21 09:02 Freq: Status: Active Protocol: Document 12/13/21 09:00 [facility] (Rec: 12/14/21 09:43 [facility] [id number]) Manual Assessments Soft Tissue Assessment Soft Tissue Mobility Assessment left descending colon Myofascial restrictions felt along with a full colon, pt notes she is not always having a daily bowel movement right sided muscle tightness and guarding with internal assessment of levator ani musculature. Mere has difficulty relaxing her pelvic floor following a contraction PT-OP-I Pelvic Floor Start: 12/13/21 09:02 Freq: Status: Active Protocol: Document 02/08/22 09:45 [facility] (Rec: 02/08/22 10:15 [facility] [id number]) Pelvic Floor Assessment Urine Pelvic Floor Surgery No Urinary Symptoms Urge Sensation,Incomplete Emptying Other Urinary Symptoms bladder leakage 3 times per week, pelvic pressure with standing when menstruating Leakage Size Medium Leakage Cause Urge Voiding Frequency 6 times Nocturia 1 Pelvic Clock Pelvic Clock 12-3 Atrophy Pelvic Clock 3-6 Atrophy Pelvic Clock 6-9 Guarding Pelvic Clock 9-12 Atrophy Contraction Ability Voluntary Contraction Weak Voluntary Relaxation Weak Manual Muscle Testing Left 3 Manual Muscle Testing Right 2 Manual Muscle Testing Anterior 2 Manual Muscle Testing Posterior 2 Muscle Endurance (Seconds) 5 Comments Pelvic Floor Comments pt is guarded on the right lateral wall of the levator ani, she has difficulty relaxing following a pelvic floor contraction, stool is felt in the rectum with internal exam PT-OP-Q Treatments Start: 12/13/21 09:02 Freq: Status: Active Protocol: Document 02/22/22 09:44 [facility] (Rec: 02/22/22 09:58 [facility] [id number]) Therapeutic Exercises Supine Exercises bridges Reps/Minutes x 10 supine roll outs Reps/Minutes 2 x 10 with level 2 theraband Comments no complaints of hip pain pelvic floor Reps/Minutes 13.4 and max of 20.8 uv Neuro Re-Education Treatment Other Activities NMES Details NMES for the pelvic floor with internal vaginal sensor Comments NMES to 12 intensity today, she can feel the sensation in the anterior section initially but after a few minutes she could feel all the parts EMG biofeedback Comments EMG biofeedback was used today for relaxed awareness of the pelvic floor and endurance training. Pt did all of her pelvic floor exercises with EMG biofeedback. PT-OP-T Assessment and Plan Start: 12/13/21 09:02 Freq: Status: Active Protocol: Document 02/22/22 09:44 [facility] (Rec: 02/22/22 09:58 [facility] [id number]) Physical Therapy Assessment Goals 3 Impairment pelvic floor weakness and decreased pelvic floor endurance Short Term Goal (STG) Mere is able to sustain a pelvic floor contraction in supine x 10 seconds Heel Coverer Goal (LTG) Mere is able to show a improvement with pelvic floor muscle strength by 1 muscle grade or better and is able to sustain a pelvic floor contraction x 10 seconds in standing LTG Duration 12 weeks 2 Impairment urinary incontinence with strong urge to void wetting through her outerware 3 times per week Heel Coverer Goal (LTG) Mere reports a overall reduction in urinary incontinence from wetting through her outerware 3 xms per week to no leakage LTG Duration 12 weeks 1 Impairment urinary urgency and frequency with nocturia Short Term Goal (STG) Mere is educated on bladder retraining and urge deference technique STG Duration 3 weeks Jail Goal (LTG) Mere is able to extend her voiding intervals to every 2-3 hours during the day and 0-1 times at night LTG Duration 12 weeks Assessment Summary Assessment For the first time today Mere was able to feel all [place] of the levator ani with NMES. She was fatigued following NMES so next visit we will do the exercises first with EMG biofeedback and end with NMES Physical Therapy Plan Frequency and Duration Frequency of Treatment 1x/Week Duration of treatment (weeks) 12 Plan of Care Start Date 12/13/21 Plan of Care End Date 03/15/21 Therapeutic Interventions Therapeutic Interventions Home Exercise Program,Manual Therapy,Neuromuscular Re- education,Patient/Caregiver Education,Self-Care/Home Management,Soft Tissue Mobilization,Therapeutic Exercises Modalities Biofeedback,Electric Stimulation Next Visit Focus/Plan Next Note Type Treatment Note Next Visit Plan recheck pelvic floor strength with manual assessment next visit, end with NMES following EMG biofeedback
--- NOTE | 2022-03-01 13:23 | PT.OTN ---
Current Diagnoses Unspecified urinary incontinence (03/01/22) Nocturia (03/01/22) Urgency of urination (03/01/22) Physical Therapy Treatment Note PT-OP-A Visit Information Start: 12/13/21 09:02 Freq: Status: Active Protocol: Document 03/01/22 09:44 [facility] (Rec: 03/01/22 09:52 [facility] [id number]) Out-Patient Physical Therapy Visit Information Visit Information Visit Type Treatment Note Visit Start Time 09:45 Visit Stop Time 10:30 Total Visit Minutes 45 Visit Number 7 PT-OP-B Current Condition Start: 12/13/21 09:02 Freq: Status: Active Protocol: Document 12/13/21 09:05 [facility] (Rec: 12/13/21 09:26 [facility] [id number]) Current Condition History of Current Condition Onset Date January 2019 following the of her daughter Current Complaints urinary urgency, frequency, urge incontinence History of Current Condition January 2019 normal vaginal delivery, pt used to be able to go long durations without having to use the bathroom, now she feels like she has to void frequently, nocturia if her baby wakes her up. If she doesn't go during the day when she has to void. Doesn't usually leak with cough laugh sneeze. On the first day of her period she will note numbness. Pt notes she doesn' t always have a daily bowel movement. There are days that it doesn't happen. PT-OP-C Subjective Start: 12/13/21 09:02 Freq: Status: Active Protocol: Document 03/01/22 09:44 [facility] (Rec: 03/01/22 09:52 [facility] [id number]) OP-PT Subjective Patient Comments Patient Comments Mere reports no urgency this week, she went shopping in [place] over the weekend and went 4 hours inbetween voids without urgency or thinking about having to go. She is feeling independent with her HEP and ready to discharge PT Patient Reported Progress Improving PT-OP-F Manual Assessment Start: 12/13/21 09:02 Freq: Status: Active Protocol: Document 12/13/21 09:00 [facility] (Rec: 12/14/21 09:43 [facility] [id number]) Manual Assessments Soft Tissue Assessment Soft Tissue Mobility Assessment left descending colon Myofascial restrictions felt along with a full colon, pt notes she is not always having a daily bowel movement right sided muscle tightness and guarding with internal assessment of levator ani musculature. Mere has difficulty relaxing her pelvic floor following a contraction PT-OP-I Pelvic Floor Start: 12/13/21 09:02 Freq: Status: Active Protocol: Document 03/01/22 09:44 [facility] (Rec: 03/01/22 10:30 [facility] [id number]) Pelvic Floor Assessment Contraction Ability Voluntary Contraction Moderate Voluntary Relaxation Moderate Manual Muscle Testing Left 3 Manual Muscle Testing Right 3 Manual Muscle Testing Anterior 3 Manual Muscle Testing Posterior 3 Muscle Endurance (Seconds) 10 Comments Pelvic Floor Comments good muscle tone with vaginal exam today PT-OP-Q Treatments Start: 12/13/21 09:02 Freq: Status: Active Protocol: Document 03/01/22 09:44 [facility] (Rec: 03/01/22 10:30 [facility] [id number]) Therapeutic Exercises Supine Exercises templates for coordination and eccentric control on EMG biofeedback Reps/Minutes x5 quick pelvic floor contractions Comments 30.0 uv max pelvic floor Reps/Minutes 19.2 31 max Neuro Re-Education Treatment Other Activities NMES Details NMES for the pelvic floor with internal vaginal sensor Comments NMES to 16 intensity today, she can feel the sensation in the anterior section initially but after a few minutes she could feel all the parts EMG biofeedback Comments EMG biofeedback was used today for relaxed awareness of the pelvic floor and endurance training. Pt did all of her pelvic floor exercises with EMG biofeedback. PT-OP-T Assessment and Plan Start: 12/13/21 09:02 Freq: Status: Active Protocol: Document 03/01/22 09:44 [facility] (Rec: 03/01/22 10:30 [facility] [id number]) Physical Therapy Assessment Goals 3 Impairment pelvic floor weakness and decreased pelvic floor endurance Short Term Goal (STG) Mere is able to sustain a pelvic floor contraction in supine x 10 seconds GOAL MET Mcc Goal (LTG) Mere is able to show a improvement with pelvic floor muscle strength by 1 muscle grade or better and is able to sustain a pelvic floor contraction x 10 seconds in standing GOAL MET by improving MMT by 1 muscle grade and pt will continue to work on upright positions LTG Duration 12 weeks 2 Impairment urinary incontinence with strong urge to void wetting through her outerware 3 times per week Mcc Goal (LTG) Mere reports a overall reduction in urinary incontinence from wetting through her outerware 3 xms per week to no leakage Goal met, no current leakage LTG Duration 12 weeks 1 Impairment urinary urgency and frequency with nocturia Short Term Goal (STG) Mere is educated on bladder retraining and urge deference technique STG Duration 3 weeks Planner Goal (LTG) Mere is able to extend her voiding intervals to every 2-3 hours during the day and 0-1 times at night Goal met LTG Duration 12 weeks Progress Towards Goals Progress Towards Goals Goals Met Assessment Summary Assessment Meer has made great overall progress with both pelvic floor strengthening and bladder retraining. At this point she is no longer experienceing the leakage and is not experiencing the urgency and frequency she was prior to beginning PT. She will be discharged to a [facility] Physical Therapy Plan Discharge Physical Therapy Discharge Reasons Goals Met
== END 2022-03-06 11:21 | disposition home or self-care (01) ==
LOC: PHYS 09:45
PROVIDERS: Family Provider Pediatrics; PCP Pediatrics; Referring Provider Nurse Practitioner; Visit Provider Nurse Practitioner
DX: R32 Unspecified urinary incontinence (principal); R39.15 Urgency of urination; R35.1 Nocturia
CPT/HCPCS: 97110; 97112; 97161; 97535

== ENCOUNTER → 2023-03-29 10:33 | Outpatient (CLI) | payer OTHER, SELFPAY ==
--- NOTE | 2023-03-29 10:34 | DI.RAD.S_ITS ---
PROCEDURE: XR FOOT LT MIN 3V INDICATIONS: pain @ 5th metatarsal TECHNIQUE: 3 views of the foot were acquired. COMPARISON: None. FINDINGS: Bones: No fractures or dislocations. No suspicious bony lesions. Small calcaneal spur Soft tissues: No tibiotalar joint effusion. Achilles tendon appears normal. IMPRESSION: Small calcaneal spur without fracture Approved by: Darrell Lundberg M.D. on 03/29/2023 at 18:40
== END ==
PROVIDERS: Family Provider Pediatrics; PCP Family Medicine; Referring Provider Physician Assistant; Visit Provider Physician Assistant
DX: M79.672 Pain in left foot (principal); M77.32 Calcaneal spur, left foot
CPT/HCPCS: 73630

== ENCOUNTER → 2023-05-22 09:07 | Outpatient (CLI) | payer OTHER, SELFPAY ==
[2023-05-22 10:06] LABS: COVID-19 CEPHEID 4-PLEX PCR Negative (Negative); Influenza A - CEPHEID Flu A NEGATIVE (NEGATIVE); Influenza B - CEPHEID Flu B NEGATIVE (NEGATIVE); Respiratory Syncytial Virus Negative (Negative)
== END ==
PROVIDERS: Family Provider Pediatrics; PCP Family Medicine; Visit Provider Family Medicine
DX: Z20.828 Contact with and (suspected) exposure to other viral communicable diseases (principal)
CPT/HCPCS: 0241U

== ENCOUNTER → 2023-11-28 13:44 | Outpatient (CLI) | payer OTHER, SELFPAY ==
[2023-11-28 15:04] LABS: Add Manual Diff / Slide Review NO; Basophils Absolute Auto 0 /uL (0-100); Basophils Percent Auto 0.2 % (0-2); Eosinophils Absolute Auto 100 /uL (0-450); Eosinophils Percent Auto 0.7 % (2-4); Hematocrit 38.1 % (36-46); Lymphocytes Absolute Auto 2500 /uL (1100-4500); Lymphocytes Percent Auto 23.4 % (25-40); Mean Corpuscular Hemoglobin 30.1 PG (26-34); Mean Corpuscular Volume 88.5 fL (80-100); Monocytes Absolute Auto 600 /uL (0-900); Monocytes Percent Auto 5.8 % (3-14); Neutrophils Absolute Auto 7400 /uL (1500-7000); Neutrophils Percent Auto 69.9 % (50-75); Platelet Count 289 X10^3/uL (150-400); Red Blood Cell Count 4.31 X10^6/uL (4.0-5.2); Red Cell Distribution Width 12.8 % (11.6-14.8); White Blood Cell Count 10.6 X10^3/uL (4.5-11.0)
[2023-11-28 15:33] LABS: Alanine Aminotransferase 29 IU/L (<35); Albumin 4.4 g/dL (3.5-5.0); Albumin Globulin Ratio 1.3 (1.0-2.8); Alkaline Phosphatase 34 U/L (38-126); Aspartate Aminotransferase 27 IU/L (14-36); BUN Creatinine Ratio 17.9 (6-22); Bilirubin Total 0.7 mg/dL (0.2-1.3); Blood Urea Nitrogen 15 mg/dL (7-17); Calcium 9.5 mg/dL (8.4-10.2); Carbon Dioxide 30 mmol/L (22-32); Chloride 102 mmol/L (98-107); Estimated Glomerular Filt Rate > 60 mL/min (>60); Globulin 3.3 g/dL (1.7-4.1); Glucose 85 mg/dL (70-100); HEMOLYSIS < 15 (0-50); Potassium 3.5 mmol/L (3.4-5.1); Sodium 138 mmol/L (137-145); Total Protein 7.7 g/dL (6.3-8.2)
[2023-11-28 22:33] LABS: TSH w/ Reflex to FT4 0.98 uIU/mL (0.47-4.68)
[2023-11-28 22:53] LABS: Vitamin B12 751 pg/mL (239-931)
== END ==
PROVIDERS: Family Provider Pediatrics; PCP Family Medicine; Referring Provider Physician Assistant; Visit Provider Physician Assistant
DX: R53.83 Other fatigue (principal)
CPT/HCPCS: 36415; 80053; 82306; 82607; 84443; 85025

== ENCOUNTER → 2023-12-04 13:26 | Outpatient (CLI) | payer OTHER, SELFPAY ==
--- NOTE | 2023-12-04 13:45 | DI.US.S_ITS ---
PROCEDURE: US PELVIC COMPLETE INDICATIONS: MENORRHAGIA TECHNIQUE: Real-time scanning was performed of the pelvic organs, with image documentation. Additional endovaginal scanning was necessary due to incomplete visualization of the adnexal and endometrial structures by transabdominal scanning. COMPARISON: None. FINDINGS: Uterus: Uterus is anteverted and normal in size at 9.5 x 4.8 x 4.2 cm. The myometrium is homogeneous. The endometrium measures 8.6 mm combined thickness. Small myometrial cyst 5 mm Ovaries: The right ovary measures 4.5 x 2.0 x 3.0 cm, with a calculated ovarian volume of 13.8 cc. The left ovary measures 2.8 x 1.9 x 1.2 cm, with a calculated ovarian volume of 3.4 cc. The ovaries have a normal sonographic appearance. Less than 12 follicles can be seen in each ovary. No adnexal masses are seen. Right ovarian cysts measure up to 2 cm show irregular wall thickening with internal vascularity Other: No pathologic free abdominal or pelvic fluid. IMPRESSION: Right ovarian 2 cm cyst with wall thickening and internal vascularity. Consider follow-up MRI with without contrast for further evaluation Approved by: Darrell Lundberg M.D. on 12/04/2023 at 17:10
== END ==
PROVIDERS: Family Provider Pediatrics; PCP Family Medicine; Referring Provider Physician Assistant; Visit Provider Physician Assistant
DX: N92.0 Excessive and frequent menstruation with regular cycle (principal); N83.201 Unspecified ovarian cyst, right side
CPT/HCPCS: 76830; 76856

== ENCOUNTER → 2023-12-26 12:32 | Outpatient (CLI) | payer OTHER, SELFPAY ==
--- NOTE | 2023-12-26 12:33 | DI.MRI.S_ITS ---
PROCEDURE: MR PELVIS WO/W CON INDICATIONS: f/u abnormal US, complex cyst TECHNIQUE: Coronal HASTE, sagittal breath-hold T2 FSE; axial T1 FSE with and without fat saturation through the pelvis. Optional long- and short-axis uterine nonbreath-hold T2 FSE through the uterus. Sagittal or axial dynamic VIBE during administration of contrast. Post-contrast axial or coronal VIBE/2-D FLASH with fat saturation from the iliac crests to the symphysis. Optional diffusion weighted imaging and ADC may be performed. COMPARISON: [facility], US, US PELVIC COMPLETE, 12/04/2023, 13:37. FINDINGS: Image quality: Diagnostic Lower abdomen: No bowel obstruction or lower abdomen. No pathologic ascites Bladder: Under distended, unremarkable Reproductive organs: There are nabothian cysts. Endometrium measures 7 mm. Most of the junctional zone is within normal limits for age measuring under 12 mm. Anteriorly, there is focal thickening measuring 1.2 cm with subendometrial cystic changes. Multiple simple appearing follicles are seen in both ovaries. No suspicious soft tissue nodular enhancement identified. On precontrast T1 weighted images, no evidence of intrinsic T1 hyperintense the positive cysts. 2 cm right follicular cyst is present corresponding to ultrasound finding, without internal suspicious enhancement. Rectum: Unremarkable Vessels and lymph nodes: No aneurysmal artery identified. No pathologic lymph nodes by size criteria. Pelvic wall: Unremarkable Bones: No suspicious osseous enhancement. IMPRESSION: Multiple ovarian follicles are seen. Suspected follicular cyst in the right ovary corresponds to sonographic finding measuring 2 cm. This is favored physiologic given patient's age. No suspicious internal enhancing nodule identified on post contrast images. Depending on clinical context, a follow-up ultrasound in 1-2 months is reasonable to ensure stability or resolution Focal junctional zone thickening anteriorly measuring just above 1.2 cm with subendometrial cystic changes, possibly minimal focal adenomyosis. Other findings as above. Dictated by: Ivan Eid M.D. on 12/26/2023 at 16:49 Approved by: Ivan Eid M.D. on 12/26/2023 at 16:54
== END ==
LOC: MRI 12:32
PROVIDERS: Family Provider Pediatrics; PCP Family Medicine; Referring Provider Physician Assistant; Visit Provider Physician Assistant
DX: N83.8 Other noninflammatory disorders of ovary, fallopian tube and broad ligament (principal)
CPT/HCPCS: 72197; A9579

== ENCOUNTER → 2024-06-06 17:25 | Outpatient (CLI) | payer OTHER, SELFPAY ==
[2024-06-06 18:46] LABS: Influenza A - CEPHEID Flu A NEGATIVE (NEGATIVE); Influenza B - CEPHEID Flu B NEGATIVE (NEGATIVE); Respiratory Syncytial Virus Negative (Negative)
[2024-06-06 18:50] LABS: COVID-19 CEPHEID 4-PLEX PCR Negative (Negative)
== END ==
PROVIDERS: PCP Family Medicine; Visit Provider Physician Assistant
DX: J02.9 Acute pharyngitis, unspecified (principal); R05.1 Acute cough
CPT/HCPCS: 0241U; 87070

== ENCOUNTER → 2024-11-11 09:54 | Outpatient (CLI) | payer OTHER, SELFPAY ==
--- NOTE | 2024-11-11 10:01 | DI.MG.S_ITS ---
MM screening mammo BI: 11/11/2024. BI-RADS: 1 CLINICAL: 39-year old female for bilateral screening mammogram. Tyrer-Cuzick lifetime risk of 25.2%. Current reported family history of breast cancer: mother. PRIOR EXAMS 10/05/2021, 04/24/2018. MAMMOGRAPHY TECHNIQUE: 2D and 3D (tomosynthesis) digital mammographic views obtained, with additional images as needed for full coverage. Current study was also evaluated with a Computer Aided Detection (CAD) system. DENSITY C. The breasts are heterogeneously dense, which may obscure small masses. MAMMOGRAPHY FINDINGS Bilateral: No suspicious mass, asymmetry, microcalcification, or other abnormality seen. IMPRESSION: * No evidence of malignancy. RECOMMENDATIONS Bilateral * According to the Tyrer-Cuzick Risk Assessment Model, based on the information provided your patient has a greater than 20% lifetime risk for developing breast cancer. Consider supplemental screening with breast MRI and participation in a high risk screening program. * Annual screening mammography. OVERALL ASSESSMENT CATEGORY BI-RADS-1: Negative. The [employer] recommends annual screening mammography beginning at age 40 for women with average risk of breast cancer. ELECTRONICALLY SIGNED: Brunilda Uribe M.D. on 11/11/2024 at 10:50:40 PM PT Interpreting Station ID: [id number]
== END ==
LOC: MAMMO 10:00
PROVIDERS: PCP Family Medicine; Referring Provider Family Medicine; Visit Provider Family Medicine
DX: Z12.31 Encounter for screening mammogram for malignant neoplasm of breast (principal); Z80.3 Family history of malignant neoplasm of breast; R92.333 Mammographic heterogeneous density, bilateral breasts
CPT/HCPCS: 77063; 77067